=== PATIENT | male | born 1950 | race African-American/Black ===

== ENCOUNTER 2019-04-20 05:13 | Emergency (ER) | payer OTHER ==
[~2019-04-20] VITALS: Ht 177.8 cm; Wt 122.9 kg
[2019-04-20 05:23] VITALS: Ht 177.8 cm; Wt 122.9 kg
[2019-04-20 06:50] LABS: BASOPHIL % 0.2 % (0-2); PLATELET COUNT 177 x10^3mcL (130-400); RED CELL DISTRIBUTION WIDTH 13.7 % (11.5-14.5)
[2019-04-20 06:58] LABS: CALCIUM 9.3 mg/dL (8.5-10.1); CARBON DIOXIDE 27.1 mmol/L (21-32); CHLORIDE SERUM 105 mmol/L (98-107); CREATININE SERUM 0.9 mg/dL (0.7-1.3); GFR1 > 60 mL/min; GLUCOSE SERUM 127 mg/dL (74-106); POTASSIUM SERUM 3.9 mmol/L (3.5-5.1); SODIUM SERUM 141 mmol/L (136-145)
[2019-04-20 07:04] LABS: ALKALINE PHOSPHATASE 74 U/L (46-116); ALT/SGPT 23 U/L (16-63); AST/SGOT 17 U/L (15-37); BILIRUBIN TOTAL 0.46 mg/dL (0.20-1.00); LIPASE 153 IU/L (73-393); TOTAL PROTEIN, SERUM 7.7 g/dL (6.4-8.2); TRIGLYCERIDES 66 mg/dL (<150)
[2019-04-20 07:08] LABS: CHOLESTEROL 131 mg/dL (<200); HDL CHOLESTEROL 66 mg/dL (40-60)
[2019-04-20 07:11] LABS: FREE T4 0.8 ng/dL (0.76-1.46); FREE THYROXINE INDEX 1.6 ug/dL (1.4-4.5); T4(THYROXINE) 4.2 ug/dL (4.7-13.3)
[2019-04-20 07:30] LABS: T3 TOTAL 0.87 ng/mL
[2019-04-20 08:02] VITALS: BP 156/75
== END 2019-04-20 08:03 | disposition home or self-care (01) ==
LOC: ED 05:13
PROVIDERS: Specialist
DX: H93.13 Tinnitus, bilateral (principal); R42 Dizziness and giddiness; I10 Essential (primary) hypertension; E11.9 Type 2 diabetes mellitus without complications; E78.00 Pure hypercholesterolemia, unspecified; Z90.49 Acquired absence of other specified parts of digestive tract
CPT/HCPCS: 36415; 82962; 83880; 84439